=== PATIENT | male | born 1940 ===

== ENCOUNTER 2021-03-11 09:54 | Emergency (ER) | payer SELFPAY ==
[~2021-03-11] VITALS: Ht 162.6 cm; Wt 74.3 kg
[2021-03-11 10:00] VITALS: BP 107/54
== END 2021-03-11 15:12 | disposition left against medical advice (07) ==
LOC: ER 09:54
DX: M79.644 Pain in right finger(s) (principal); Z53.21 Procedure and treatment not carried out due to patient leaving prior to being seen by health care provider